=== PATIENT | female | born 1950 | race African-American/Black ===

== ENCOUNTER 2016-05-30 17:17 | Emergency (ER) | payer OTHER ==
[2016-05-30] MEDS ORDERED: SODIUM CHLORIDE 0.9% 1,000 ML ONE (20:34)
== END 2016-05-30 22:04 | disposition home or self-care (01) ==
LOC: ER 17:17
DX: I95.1 Orthostatic hypotension (principal); I10 Essential (primary) hypertension; E11.9 Type 2 diabetes mellitus without complications; D64.9 Anemia, unspecified; Z95.1 Presence of aortocoronary bypass graft; Z79.899 Other long term (current) drug therapy; Z79.84 Long term (current) use of oral hypoglycemic drugs; Z79.82 Long term (current) use of aspirin
CPT/HCPCS: 96360